=== PATIENT | male | born 1990 | race Caucasian/White ===

== ENCOUNTER 2016-12-04 22:09 | Emergency (ER) | payer MEDICAID, OTHER ==
[2016-12-04 22:27] VITALS: BP 156/85; PULSE 79; RESP 18; TEMP 98.2; O2SAT 96
== END 2016-12-04 22:29 | disposition left against medical advice (07) ==
LOC: CED 22:09
DX: Z53.21 Procedure and treatment not carried out due to patient leaving prior to being seen by health care provider (principal)

== ENCOUNTER 2016-12-05 11:59 | Emergency (ER) | payer OTHER ==
[2016-12-05 12:10] VITALS: RESP 16
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
[2016-12-05 15:00] VITALS: BP 116/83; PULSE 77; TEMP 97.7; O2SAT 97
--- NOTE | 2016-12-05 15:10 | DX ---
Right Hand 3 Views History: Injury, pain. Comparison: Right hand August 24, 2009. Findings: No acute fractures identified. Alignment is normal. Bone mineralization is normal. There is no significant degenerative change. Plate and screw fixation of prior fourth metacarpal fracture is noted with intact hardware. Corticated osseous structures at the dorsal aspect of the distal carpal r ow suggest sequela of old avulsion fractures. Mild dorsal soft tissue swelling overlies the metacarpa ls. Impression: No acute osseous findings.
--- NOTE | 2016-12-05 15:24 | DX ---
Left elbow, 3 views History: Trauma, pain. Comparison: None. Findings: No acute fracture or dislocation identified. No joint effusion. Distal humerus, proximal ul na and proximal radius appear intact. No evidence for radial head fracture. Normal alignment. Impression: 1. No definite acute fracture. 2. Consider additional imaging if symptoms persist, if clinically indicated.
== END 2016-12-05 15:00 | disposition home or self-care (01) ==
DX: S60.221A Contusion of right hand, initial encounter (principal); S50.02XA Contusion of left elbow, initial encounter; F17.200 Nicotine dependence, unspecified, uncomplicated; V49.88XA Car occupant (driver) (passenger) injured in other specified transport accidents, initial encounter; Y92.410 Unspecified street and highway as the place of occurrence of the external cause

== ENCOUNTER → 2018-01-12 | Outpatient (CLI) | payer OTHER | LOC: BRMIMAGING 10:25 | DX: M54.2 Cervicalgia (principal) | CPT/HCPCS: 72052-PO ==

== ENCOUNTER 2018-11-18 20:54 | Emergency (ER) | payer MEDICAID, OTHER ==
[2018-11-18] MEDS ORDERED: TDAP ADULT 0.5 ML INJ (BOOSTRIX) IM ONE (21:10)
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
[2018-11-18 22:14] VITALS: BP 149/84
== END 2018-11-18 22:13 | disposition home or self-care (01) ==
PROC: 0HQ1XZZ Repair Face Skin, External Approach (ICD-10-PCS; principal; 2018-11-18)
DX: S01.411A Laceration without foreign body of right cheek and temporomandibular area, initial encounter (principal); Y04.0XXA Assault by unarmed brawl or fight, initial encounter; Z87.891 Personal history of nicotine dependence; Z88.0 Allergy status to penicillin; Z23 Encounter for immunization